=== PATIENT | female | born 2000 | race African-American/Black ===

== ENCOUNTER 2023-11-10 19:37 | Emergency (ER) | payer OTHER ==
[~2023-11-10] VITALS: Ht 162.6 cm; Wt 91.0 kg
[2023-11-10 19:57] VITALS: O2SAT 98
[2023-11-10 21:07] VITALS: BP 132/73; PULSE 95; RESP 18; TEMP 98.3
== END 2023-11-10 21:42 | disposition home or self-care (01) ==
LOC: ER 19:37
DX: F22 Delusional disorders (principal); F12.10 Cannabis abuse, uncomplicated
CPT/HCPCS: 99283

== ENCOUNTER 2023-12-10 08:37 | Emergency (ER) | payer OTHER ==
[~2023-12-10] VITALS: Ht 160 cm; Wt 120.0 kg
[2023-12-10 08:38] VITALS: O2SAT 99
[2023-12-10 12:22] VITALS: BP 121/74; PULSE 99; RESP 16; TEMP 98.2
[2023-12-11] MEDS ORDERED: NITR-87 MT (19:01)
== END 2023-12-10 12:24 | disposition home or self-care (01) ==
LOC: ER 08:37
DX: F43.9 Reaction to severe stress, unspecified (principal); F12.10 Cannabis abuse, uncomplicated
CPT/HCPCS: 71045; 81025; 99283

== ENCOUNTER 2023-12-11 03:55 | Emergency (ER) | payer OTHER ==
[~2023-12-11] VITALS: Ht 165.1 cm; Wt 110.0 kg
[2023-12-11 04:44] VITALS: O2SAT 99
[2023-12-11] MEDS: DIPHENHYDRAMINE 50MG/ML VIAL IM PRN (05:38)
[2023-12-11] MEDS: LORAZEPAM 2MG/ML INJ IM ONE (05:38)
[2023-12-11] MEDS: HALOPERIDOL LACTATE 5MG/ML VIAL IM ONE (05:38)
[2023-12-11 06:02] LABS: CLARITY URINE CLOUDY (CLEAR); COLOR URINE YELLOW (YELLOW); GLUCOSE URINE NEGATIVE (NEGATIVE); KETONES URINE 3+ (NEGATIVE); LEUKOCYTE ESTERASE URINE NEGATIVE (NEGATIVE); NITRITE URINE POSITIVE (NEGATIVE); OCCULT BLOOD URINE NEGATIVE (NEGATIVE); PROTEIN URINE TRACE (NEGATIVE); SPECIFIC GRAVITY URINE 1.016 (1.005-1.030); UROBILINOGEN URINE 0.2 E.U./dL (0.2-1.0)
[2023-12-11 06:28] LABS: BACTERIA URINE 2+; RBC URINE NONE SEEN /hpf (0-2); SQUAMOUS EPITHELIAL CELL URINE 1+ /lpf (RARE/1+)
[2023-12-11 06:32] LABS: BASOPHILS % 0.6 % (0.0-2.0); DIFFERENTIAL COMMENT 0; EOSINOPHILS % 0.1 % (0.0-5.0); HEMATOCRIT. 38.9 % (36.0-48.0); HEMOGLOBIN. 13.2 g/dL (12.0-16.0); LYMPHOCYTES % 20.2 % (20.0-50.0); MEAN CORPUSCULAR HEMOGLOBIN 26.2 pg (28.0-32.0); MEAN CORPUSCULAR VOLUME 77.1 fL (81.0-99.0); MEAN PLATELET VOLUME 8.1 fl (7.4-10.4); MONOCYTES % 6.6 % (2.0-8.0); NEUTROPHILS % 72.5 % (40.0-76.0); PLATELET 343 x1000/uL (130-400); RED BLOOD CELL COUNT 5.05 mill/uL (4.2-5.4); RED CELL DISTRIBUTION WIDTH 14.9 % (11.6-14.6); WHITE BLOOD COUNT 11.3 x1000/uL (4.5-11.0)
[2023-12-11 06:36] LABS: CHLORIDE 105 mEq/L (98-107); POTASSIUM 4.2 mEq/L (3.5-5.1); SODIUM 139 mEq/L (136-145)
[2023-12-11 06:37] LABS: CARBON DIOXIDE 24 mEq/L (21-32)
[2023-12-11 06:38] LABS: CALCIUM 10.5 mg/dL (8.7-10.4)
[2023-12-11 06:42] LABS: CREATININE 0.8 mg/dL (0.6-1.0)
[2023-12-11 06:43] LABS: GLUCOSE 81 mg/dL (70-105); UREA NITROGEN BLOOD 9 mg/dL (9-23)
[2023-12-11 06:44] LABS: ACETAMINOPHEN < 2 ug/mL (10-30)
[2023-12-11 07:20] LABS: ETHANOL BLOOD < 10 mg/dL (<10)
[2023-12-11 07:30] LABS: HCG SCREEN NEGATIVE
[2023-12-11 13:10] LABS: *AMPHETAMINES SCREEN URINE NEGATIVE (NEGATIVE); *BARBITURATES SCREEN URINE NEGATIVE (NEGATIVE); *BENZODIAZEPINES SCREEN URINE NEGATIVE (NEGATIVE); *COCAINE SCREEN URINE NEGATIVE (NEGATIVE); CANNABINOID URINE SCREEN PRESUMPTIVE POSITIVE (NEGATIVE); ECSTASY MDMA SCREEN URINE NEGATIVE (NEGATIVE); METHADONE URINE SCREEN NEGATIVE (NEGATIVE); OPIATES URINE SCREEN NEGATIVE (NEGATIVE); PHENCYCLIDINE URINE SCREEN NEGATIVE (NEGATIVE)
[2023-12-11] MEDS: NITROFURANTOIN 100MG M/M CAPSULE PO STA (15:48)
[2023-12-11] MEDS ORDERED: NITR-87 MT (19:01)
[2023-12-11] MEDS: RISPERIDONE 1MG TABLET PO SCH (21:54)
[2023-12-12] VITALS: BP 137/65; PULSE 93; RESP 16; TEMP 97.9
== END 2023-12-12 00:17 ==
LOC: ER 03:55
DX: F22 Delusional disorders (principal); F20.9 Schizophrenia, unspecified; F17.210 Nicotine dependence, cigarettes, uncomplicated; F12.10 Cannabis abuse, uncomplicated; Z20.822 Contact with and (suspected) exposure to COVID-19
CPT/HCPCS: 80305; 80048; 81003; 80307; 80329; 80320; 84703; 85025; 36415; 96372; 99285; 87426; J1200; J1630; J2060; Z7610 ×3; G0480

== ENCOUNTER 2024-10-07 20:56 | Emergency (ER) | payer OTHER ==
[~2024-10-07] VITALS: Ht 167.6 cm; Wt 125.0 kg
[~2024-10-07 20:56] MED LIST: NITR-87 MT
[2024-10-07 20:59] VITALS: TEMP 36.9; O2SAT 98
[2024-10-07] MEDS ORDERED: DIVA250T4 MT (21:03)
[2024-10-07] MEDS ORDERED: LURA60TA MT (21:04)
[2024-10-07] MEDS ORDERED: HYDR50SO MT (21:04)
[2024-10-07] MEDS ORDERED: QUET25TA MT (21:04)
[2024-10-07 21:33] LABS: CLARITY URINE CLOUDY (CLEAR); COLOR URINE YELLOW (YELLOW); GLUCOSE URINE NEGATIVE (NEGATIVE); KETONES URINE TRACE (NEGATIVE); LEUKOCYTE ESTERASE URINE TRACE (NEGATIVE); NITRITE URINE POSITIVE (NEGATIVE); OCCULT BLOOD URINE NEGATIVE (NEGATIVE); PROTEIN URINE 1+ (NEGATIVE); SPECIFIC GRAVITY URINE 1.024 (1.005-1.030)
[2024-10-07] MEDS ORDERED: AMLODIPINE 10MG TABLET PO ONE (21:45)
[2024-10-07 22:00] LABS: *AMPHETAMINES SCREEN URINE NEGATIVE (NEGATIVE); *BARBITURATES SCREEN URINE NEGATIVE (NEGATIVE); *BENZODIAZEPINES SCREEN URINE NEGATIVE (NEGATIVE); *COCAINE SCREEN URINE NEGATIVE (NEGATIVE); CANNABINOID URINE SCREEN PRESUMPTIVE POSITIVE (NEGATIVE); ECSTASY MDMA SCREEN URINE NEGATIVE (NEGATIVE); METHADONE URINE SCREEN NEGATIVE (NEGATIVE); OPIATES URINE SCREEN NEGATIVE (NEGATIVE); PHENCYCLIDINE URINE SCREEN NEGATIVE (NEGATIVE)
[2024-10-07 22:13] LABS: BACTERIA URINE 4+; RBC URINE 0-2 /hpf (0-2); SQUAMOUS EPITHELIAL CELL URINE 2+ /lpf (RARE/1+)
[2024-10-07] MEDS: OLANZAPINE 10MG TABLET PO STA (22:23)
[2024-10-07 22:24] LABS: BASOPHILS % 0.4 % (0.0-2.0); DIFFERENTIAL COMMENT 0; EOSINOPHILS % 0.5 % (0.0-5.0); HEMATOCRIT. 37.5 % (36.0-48.0); HEMOGLOBIN. 12.6 g/dL (12.0-16.0); LYMPHOCYTES % 28.9 % (20.0-50.0); MEAN CORPUSCULAR HEMOGLOBIN 25.5 pg (28.0-32.0); MEAN CORPUSCULAR HGB CONC 33.7 g/dL (31.0-37.0); MEAN CORPUSCULAR VOLUME 75.7 fL (81.0-99.0); MEAN PLATELET VOLUME 7.8 fl (7.4-10.4); MONOCYTES % 8.4 % (2.0-8.0); NEUTROPHILS % 61.8 % (40.0-76.0); PLATELET 306 x1000/uL (130-400); RED BLOOD CELL COUNT 4.96 mill/uL (4.2-5.4); RED CELL DISTRIBUTION WIDTH 14.5 % (11.6-14.6); WHITE BLOOD COUNT 12.8 x1000/uL (4.5-11.0)
[2024-10-07] MEDS: AMLODIPINE 5MG TABLET PO NR (22:24)
[2024-10-07 22:35] LABS: CHLORIDE 104 mEq/L (98-107); POTASSIUM 3.7 mEq/L (3.5-5.1); SODIUM 138 mEq/L (136-145)
[2024-10-07 22:36] LABS: CARBON DIOXIDE 27 mEq/L (21-32)
[2024-10-07 22:37] LABS: CALCIUM 9.8 mg/dL (8.7-10.4)
[2024-10-07 22:41] LABS: CREATININE 0.8 mg/dL (0.6-1.0); GLUCOSE 88 mg/dL (70-105); UREA NITROGEN BLOOD 9 mg/dL (9-23)
[2024-10-07 22:43] LABS: ACETAMINOPHEN < 2 ug/mL (10-30); ALANINE AMINOTRANSFERASE 30 IU/L (10-49); ALBUMIN 5.1 g/dL (3.2-4.8); ASPARTATE AMINOTRANSFERASE 27 IU/L (<34)
[2024-10-07 22:44] LABS: BILIRUBIN DIRECT 0.2 mg/dL (<=3.0); BILIRUBIN TOTAL 0.7 mg/dL (0.1-1.0); PROTEIN TOTAL 8.5 g/dL (6.0-8.3)
[2024-10-07 22:55] LABS: HCG SCREEN NEGATIVE
[2024-10-07 22:57] LABS: ETHANOL BLOOD < 10 mg/dL (<10); VALPROIC ACID < 3.0 ug/mL (50-100)
[2024-10-07] MEDS: LORAZEPAM 1MG TABLET PO ONE (23:51)
[2024-10-07] MEDS: NITROFURANTOIN 100MG M/M CAPSULE PO STA (23:51)
[2024-10-08 08:43] VITALS: BP 116/87; PULSE 87; RESP 18; O2SAT 99
[2024-10-08] MEDS ORDERED: CEFP200T13 MT (10:24)
== END 2024-10-08 10:31 | disposition home or self-care (01) ==
LOC: ER 20:56
DX: F12.929 Cannabis use, unspecified with intoxication, unspecified (principal); F20.9 Schizophrenia, unspecified; Z79.899 Other long term (current) drug therapy; Z59.01 Sheltered homelessness; Z20.822 Contact with and (suspected) exposure to COVID-19
CPT/HCPCS: 36415; 80048; 80076; 80165; 80305; 80307; 80320; 80329; 81003; 84703; 85025; 87426; 99283; 99284; G0480

== ENCOUNTER 2024-10-09 11:01 | Emergency (ER) | payer OTHER ==
[~2024-10-09] VITALS: Ht 162.6 cm; Wt 100.0 kg
[~2024-10-09 11:01] MED LIST changes: +CEFP200T13 MT; +DIVA250T4 MT; +HYDR50SO MT; +LURA60TA MT; +QUET25TA MT
[2024-10-09 11:04] VITALS: BP 150/80; PULSE 72; RESP 16; TEMP 36.9; O2SAT 100
== END 2024-10-09 11:11 | disposition left against medical advice (07) ==
LOC: ER 11:05
DX: R46.89 Other symptoms and signs involving appearance and behavior (principal); Z53.21 Procedure and treatment not carried out due to patient leaving prior to being seen by health care provider